=== PATIENT | male | born 1960 | race Caucasian/White ===

== ENCOUNTER 2020-09-21 20:36 | Emergency (ER) | payer BC ==
[~2020-09-21] VITALS: Ht 177.8 cm; Wt 104.3 kg
[2020-09-21 20:36] VITALS: BP 158/99
[2020-09-21] MEDS ORDERED: CEFTRIAXONE 500 MG VIAL ONE (21:10)
[2020-09-21] MEDS ORDERED: LIDOCAINE /MPF 1% VIAL 5 ML VIAL ONE (21:10)
[2020-09-21] MEDS ORDERED: AZITHROMYCIN 250 MG TABLET ONE (21:11)
[2020-09-21 21:27] LABS: APPEARANCE,URINE Slightly Cloudy (CLEAR); BILIRUBIN,URINE Negative (NEGATIVE); BLOOD, URINE Moderate Ery/uL (NEGATIVE); COLOR,URINE Yellow (YELLOW); KETONES,URINE Negative (NEGATIVE); LEUKOCYTE ESTERASE ,URINE Trace (NEGATIVE); NITRITE, URINE Negative (NEGATIVE); PH,URINE 5.5 (5.0-8.0); PROTEIN,URINE Negative (NEGATIVE); UGLUCOSE Negative (NEGATIVE); UROBILINOGEN,URINE 0.2 EU/dL (0.2)
[2020-09-21] MEDS: AZITHROMYCIN 250 MG TABLET ONE (21:29)
[2020-09-21] MEDS: CEFTRIAXONE 500 MG VIAL IM ONE (21:29)
[2020-09-21] MEDS: AZITHROMYCIN 250 MG TABLET PO ONE (21:29)
[2020-09-21 21:52] LABS: BACTERIA,URINE 1+ /HPF (None Seen); MUCUS,URINE Few /LPF (None Seen); SQUAMOUS EPITHELIAL CELL,UR Few /HPF (None Seen); WBC,URINE TOO NUMEROUS TO COUN /HPF (0-3)
== END 2020-09-21 21:30 | disposition home or self-care (01) ==
LOC: ER 20:36
DX: A64 Unspecified sexually transmitted disease (principal); I10 Essential (primary) hypertension; E78.5 Hyperlipidemia, unspecified; Z72.52 High risk homosexual behavior
CPT/HCPCS: 81001; 87086; 87491; 87591; 96372; 99283; J0696; J3490; 81000-TC